=== PATIENT | female | born 1965 | race Caucasian/White ===

== ENCOUNTER 2017-04-27 10:51 | Day surgery (SDC) | payer OTHER ==
[~2017-04-27 10:51] MED LIST: Lactated Ringers 1,000 ML IV SCH; Lidocaine 2% 5 ML SDV ONE
--- NOTE | 2017-04-27 11:54 | PCM.PREANE ---
Preanesthetic Assessment - Anesthesia/Transfusion/Family Hx Anesthesia History: Prior Anesthesia Without Reaction Family History of Anesthesia Reaction: No Transfusion History: No Prior Transfusion(s) Intubation History: Unknown - Review of Systems General: No Symptoms Pulmonary: No Symptoms Cardiovascular: No Symptoms Gastrointestinal: Abdominal Pain, Nausea, Vomiting Neurological: No Symptoms Other: Reports: None - Physical Assessment Height: 1.65 m Weight: 70.76 kg ASA Class: 2 Mental Status: Alert & Oriented x3 Airway Class: Mallampati = 2 Dentition: Reports: Normal Dentition (grinded edges on front upper teeth), Partial (lower) Thyro-Mental Finger Breadths: 3 Mouth Opening Finger Breadths: 3 ROM/Head Extension: Full Lungs: Clear to Auscultation, Normal Respiratory Effort Cardiovascular: Regular Rate, Regular Rhythm - Allergies Allergies/Adverse Reactions: Allergies Allergy/AdvReac Type Severity Reaction Status Date / Time codeine Allergy SOB/rash Verified 04/21/17 11:46 cortisone Allergy SOB/rash Verified 04/21/17 11:46 morphine Allergy SOB/rash Verified 04/21/17 11:46 - Blood Blood Available: No - Anesthesia Plan Pre-Op Medication Ordered: None - Acknowledgements Anesthesia Type Planned: MAC Pt an Appropriate Candidate for the Planned Anesthesia: Yes Alternatives and Risks of Anesthesia Discussed w Pt/Guardian: Yes Pt/Guardian Understands and Agrees with Anesthesia Plan: Yes PreAnesthesia Questionnaire HEENT History: Reports: Other (See Below) Other HEENT History: bottom partial Cardiovascular History: Reports: Other (See Below) Other Cardiovascular History: hypotension Respiratory History: Reports: COPD (very mild) Gastrointestinal History: Reports: Other (See Below) Other Gastrointestinal History: currently c/o abd pain, on carafate Genitourinary History: Reports: Renal Calculus 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: 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: Musculoskeletal History: Reports: Other (See Below) Other Musculoskeletal History: hx fx humerus (IM danette), hx L4 vertebral fx - no surgery done Neurological History: Reports: Vertigo - Past Surgical History Head Surgeries/Procedures: Reports: None HEENT Surgical History: Reports: Adenoidectomy, Tonsillectomy GI Surgical History: Reports: Appendectomy, Cholecystectomy, ERCP, Other (See Below) (sigmoidoscopy years ago) Other GI Surgeries/Procedures: endoscopic retrograde cholangiopancreatography Female Surgical History: Reports: Hysterectomy Other Female Surgeries/Procedures: hx ureter reimplantation 2007, ureteral reflux procedure 2011 - SUBSTANCE USE Smoking Status *Q: Former Smoker (quit 5 years ago) Tobacco Use Within Last Twelve Months: No Recreational Drug Use History: No - HOME MEDS Home Medications: Home Meds Albuterol [Ventolin HFA] 1 - 2 puff INH ASDIRECTED PRN 04/21/17 [History] Cholecalciferol (Vitamin D3) [Vitamin D3] 2 tab PO DAILY 04/21/17 [History] Fluticasone/Salmeterol [Advair Hfa 230-21 Mcg Inhaler] 2 puff INH BID 04/21/17 [ History] Meclizine HCl 25 mg PO ASDIRECTED PRN 04/21/17 [History] Metaxalone [Skelaxin] 800 mg PO Q6H PRN 04/21/17 [History] Ondansetron [Zofran ODT] 4 mg PO ASDIRECTED PRN 04/21/17 [History] Sucralfate [Carafate] 10 ml PO QID 04/21/17 [History] - CURRENT (IN HOUSE) MEDS Current Meds: Current Medications Lactated Ringer's (Ringers, Lactated) 1,000 mls @ 125 mls/hr IV ASDIRECTED AKUA Last Admin: 04/27/17 11:17 Dose: 125 mls/hr Discontinued Medications Lidocaine (Xylocaine-Mpf 2%) Confirm Administered Dose 5 ml .ROUTE .STK-MED ONE Stop: 04/27/17 10:34
[2017-04-27] MEDS ORDERED: Propofol 200 MG/20 ML SDV ONE ×3 (12:39→15:13)
[2017-04-27] MEDS ORDERED: fentaNYL 100 MCG/2 ML SDV ONE (14:41)
--- NOTE | 2017-04-27 15:44 | PCM.OPNOTE ---
<Hay Mina - Last Filed: 04/27/17 15:41> - General Post-Op/Procedure Note Date of Surgery/Procedure: 04/27/17 Operative Procedure(s): EGD with biopsy of duodenum, antrum, gastroesophageal junction. Colonoscopy with polypectomy of rectal polyp. Findings: Gastritis, Rectal Polyp. Pre Op Diagnosis: Epigastric pain and desire for colorectal cancer screening. Post-Op Diagnosis: Gastritis and Rectal Polyp. Anesthesia Technique: MAC (ASA II) Primary Surgeon: Dat Carrasco Typists Supervisor: Hay Mina EBL in mLs: 0 Complications: None Condition: Good <Dat Carrasco - Last Filed: 04/27/17 15:49> - General Post-Op/Procedure Note Free Text/Narrative:: Dictation [id number] CPT CODE [id number]
[2017-04-27] MEDS ORDERED: Albuterol 6.7 GM Inhaler INH PRN (15:45)
[2017-04-27] MEDS ORDERED: Albuterol 6.7 GM Inhaler INH ONE (15:51)
--- NOTE | 2017-04-27 15:57 | PCM48HPAN ---
Post Anesthesia Note - EVALUATION WITHIN 48HRS OF ANESTHETIC Vital Signs in Normal Range: Yes Patient Participated in Evaluation: Yes Respiratory Function Stable: Yes Airway Patent: Yes Cardiovascular Function Stable: Yes Hydration Status Stable: Yes Pain Control Satisfactory: Yes Nausea and Vomiting Control Satisfactory: Yes Mental Status Recovered: Yes
--- NOTE | 2017-04-27 15:57 | PCM.POSTAN ---
POST ANESTHESIA ASSESSMENT - MENTAL STATUS Mental Status: Alert, Oriented - RESPIRATORY Respiratory Status: Respiratory Rate WNL, Airway Patent, O2 Saturation Stable - CARDIOVASCULAR CV Status: Pulse Rate WNL, Blood Pressure Stable - GASTROINTESTINAL GI Status: No Symptoms - POST OP HYDRATION Hydration Status: Adequate & Stable
--- NOTE | 2017-04-27 20:52 | OR ---
SURGEON: Dat Carrasco M.D. DATE OF PROCEDURE: 04/27/2017 OPERATION PERFORMED: Colonoscopy with cold rectal polypectomy. SUPERINTENDENT OVERHEAD DISTRIBUTION: Dr. Mina. ANESTHESIA: MAC. ASA CLASSIFICATION: 2. PREOPERATIVE DIAGNOSIS: Desire for colorectal cancer screening. POSTOPERATIVE DIAGNOSIS: Rectal polyp. DESCRIPTION OF PROCEDURE: With the patient having completed an esophagogastroduodenoscopy, she was now positioned in the left lateral decubitus position. The colonoscope was inserted into the rectum and advanced with minimal difficulty to the cecum where the colonoscope was retroflexed to visualize the ascending colon from below. The colonoscope was then straightened and slowly withdrawn. The cecum, ascending colon, hepatic flexure, transverse colon, splenic flexure, descending colon, and sigmoid colon showed no tumors, polyps, diverticuli, or angiodysplastic changes. One small polyp was encountered in the rectum and removed with the cold biopsy forceps. The colonoscope was then retroflexed to visualize the anal orifice from above. Again, no tumors or polyps were seen and there were no acute hemorrhoidal changes. The colonoscope was then straightened, the rectum aspirated, and the colonoscope removed. The patient tolerated the procedure well and was taken to the recovery room in stable condition. RYAN GONZALES /[id number]
--- NOTE | 2017-04-28 08:51 | OR ---
SURGEON: Dat Carrasco M.D. DATE OF PROCEDURE: 04/27/2017 PROCEDURE: Esophagogastroduodenoscopy with biopsy. DISTILLATION OPERATOR: Dr. Mina. ANESTHESIA: MAC. ASA CLASSIFICATION: II. PREOPERATIVE DIAGNOSIS: Persistent epigastric pain. POSTOPERATIVE DIAGNOSES: Duodenitis, gastritis, and esophagitis. No ulcerations. DESCRIPTION OF PROCEDURE: The patient was taken to the endoscopy room and positioned on the endoscopy table in the supine position. Time-out was called for appropriate identification of the patient and procedure. Monitored anesthesia care was provided. The bite block was placed between the patient's teeth. The gastroscope was inserted into the mouth and advanced without difficulty through the esophagus and stomach and into the duodenum, where examination was carried out in a retrograde fashion. Duodenum showed mild inflammatory changes. Biopsies were obtained. The gastroscope was withdrawn into the stomach, which also showed a [id number]-ia-[id number] gastritis. Antral biopsies were obtained to look for the presence of Helicobacter pylori. The gastroscope was retroflexed to visualize the proximal stomach. No ulcerations were noted proximally. The gastroscope was then straightened and slowly withdrawn. GE junction did show some mild acute inflammatory changes. No ulcerations were noted. The biopsies of the GE junction were obtained. The esophagus demonstrated good contractility. No mid or proximal lesions were identified. The gastroscope was then removed with the patient having tolerated this portion of the procedure well. Following colonoscopy, she was taken to the recovery room in stable condition. RYAN GONZALES /[id number]
== END 2017-04-27 16:15 | disposition home or self-care (01) ==
LOC: MW.SDS 10:51
PROVIDERS: ATTEND Surgery
DX: Z12.11 Encounter for screening for malignant neoplasm of colon (principal); K29.50 Unspecified chronic gastritis without bleeding; K20.9 Esophagitis, unspecified; K62.1 Rectal polyp; J44.9 Chronic obstructive pulmonary disease, unspecified; J30.2 Other seasonal allergic rhinitis; Z88.8 Allergy status to other drugs, medicaments and biological substances; Z79.899 Other long term (current) drug therapy; Z90.49 Acquired absence of other specified parts of digestive tract; Z90.710 Acquired absence of both cervix and uterus; Z87.891 Personal history of nicotine dependence
CPT/HCPCS: 43239; 45380; A9270; J3010; J7120; 00740; 88305; 88312; J2704